=== PATIENT | female | born 1955 | race Two or more races ===

== ENCOUNTER → 2018-05-11 | Emergency (ER) | payer OTHER ==
[~2018-05-11] VITALS: Ht 165.1 cm; Wt 108.9 kg
[~2018-05-11] MED LIST: CARDURA XL4 MG; DOLOGESIC 500-1 EACH PO; PEPCID40 MG PO; ZOFRAN4 MG PO
== END | disposition home or self-care (01) ==
LOC: ER 20:05
DX: M54.16 Radiculopathy, lumbar region (principal); M54.5 Low back pain

== ENCOUNTER 2019-08-21 19:55 | Emergency (ER) | payer OTHER ==
[~2019-08-21] VITALS: Ht 165.1 cm; Wt 106.6 kg
[2019-08-21] MEDS ORDERED: NORVASC2.5 M1 (21:31)
[2019-08-21] MEDS ORDERED: NEURAPTINE1 GM (21:31)
[2019-08-21] MEDS ORDERED: HYZAAR 100-12.1 EACH (21:31)
== END 2019-08-22 00:44 | disposition home or self-care (01) ==
LOC: ER 19:55
DX: M51.26 Other intervertebral disc displacement, lumbar region (principal)

== ENCOUNTER 2021-02-04 10:11 | Outpatient (CLI) | payer OTHER ==
[~2021-02-04 10:11] MED LIST changes: +HYZAAR 100-12.1 EACH; +NEURAPTINE1 GM; +NORVASC2.5 M1
== END 2021-02-04 10:14 | disposition home or self-care (01) ==
LOC: MRI 10:11
PROVIDERS: ATTEND General Practice
DX: M51.17 Intervertebral disc disorders with radiculopathy, lumbosacral region (principal); M54.42 Lumbago with sciatica, left side; M43.10 Spondylolisthesis, site unspecified
CPT/HCPCS: 72148